=== PATIENT | female | born 1990 | race African-American/Black ===

== ENCOUNTER 2017-05-17 10:16 | Emergency (ER) | payer OTHER ==
[~2017-05-17] VITALS: Ht 170.2 cm; Wt 59.0 kg
[~2017-05-17 10:16] MED LIST: ALLEGRA30 MG; AMOXICILLIN875 M1 PO; AMOXICILLIN875 MG PO; COMPAZINE10 MG PO; COMPAZINE25 M1 RC; FLAGYL500 M1 PO; IBUPROFEN800 M1 PO; IRON1 TA1 PO; MACROBID 100 M100 M1 PO; MACROBID100 MG/CA2 PO; MOTRIN800 MG PO; NORCO 5-325 TA1 EACH PO; NORCO 5/325 TAB1 TAB PO; NORCO 7.5/325 T1 TAB PO; PRENATAL1 EACH PO; PRENATAL1 TAB; ZOFRAN ODT4 MG PO; ZOFRAN ODT4 MG/UDTAB PO; ZOFRAN4 M1 PO; ZOFRAN4 MG PO
[2017-05-17] MEDS ORDERED: CYCLOBENZAPRINE10 M1 PO (11:43)
[2017-05-17] MEDS ORDERED: NORCO 5-325 TA1 EACH PO (11:43)
== END 2017-05-17 11:51 ==
LOC: EDMED 10:16
DX: S29.012A Strain of muscle and tendon of back wall of thorax, initial encounter (principal); S39.012A Strain of muscle, fascia and tendon of lower back, initial encounter; F17.200 Nicotine dependence, unspecified, uncomplicated; Z88.0 Allergy status to penicillin; Z88.8 Allergy status to other drugs, medicaments and biological substances; X50.0XXA Overexertion from strenuous movement or load, initial encounter; Y92.69 Other specified industrial and construction area as the place of occurrence of the external cause